=== PATIENT | male | born 1990 | race Two or more races ===

== ENCOUNTER 2018-01-15 11:24 | Emergency (ER) | payer OTHER, BC ==
[2018-01-15 11:42] VITALS: BP 175/90; PULSE 88; RESP 18; TEMP 97.9
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
--- NOTE | 2018-01-15 12:40 | XR ---
EXAMINATION TYPE: XR shoulder complete LT DATE OF EXAM: 01/15/2018 COMPARISON: NONE HISTORY: Pain TECHNIQUE: Three views are submitted. FINDINGS: The osseous structures are intact. There is no acute fracture or dislocation. The AC joint is maint ained. Calcification left axilla is nonspecific. IMPRESSION: 1. No acute process.
--- NOTE | 2018-01-15 12:41 | XR ---
EXAM TYPE: LUMBAR SPINE X RAY SERIES COMPARISON: NONE HISTORY: Pain TECHNIQUE: 3 views are submitted. FINDINGS: Alignment is anatomic. The pedicles are intact. The transverse processes are intact. There is no s pondylolysis or spondylolisthesis. IMPRESSION: 1. No acute process.
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
== END 2018-01-15 13:54 | disposition home or self-care (01) ==
LOC: EC 11:24
DX: R51 Headache (principal); H57.12 Ocular pain, left eye; M25.512 Pain in left shoulder; M54.5 Low back pain; Z87.891 Personal history of nicotine dependence; V43.52XA Car driver injured in collision with other type car in traffic accident, initial encounter; W22.11XA Striking against or struck by driver side automobile airbag, initial encounter; Y92.410 Unspecified street and highway as the place of occurrence of the external cause
CPT/HCPCS: 70450; 70486; 72100; 72125; 99284

== ENCOUNTER 2019-05-21 16:42 | Emergency (ER) | payer OTHER, BC ==
[2019-05-21 16:45] VITALS: BP 130/64; PULSE 66; RESP 20; TEMP 97.7
--- NOTE | 2019-05-21 17:48 | XR ---
EXAMINATION TYPE: XR hand complete LT DATE OF EXAM: 05/21/2019 COMPARISON: NONE HISTORY: Hand pain TECHNIQUE: 3 views FINDINGS: Metacarpals appear intact. I see no fracture nor dislocation. Joint spaces are normal. Ther e are no erosions. IMPRESSION: Negative left hand exam.
--- NOTE | 2019-05-21 17:49 | XR ---
EXAMINATION TYPE: XR wrist complete LT DATE OF EXAM: 05/21/2019 COMPARISON: NONE HISTORY: Pain TECHNIQUE: 4 views FINDINGS: Carpal bones appear intact. I see no fracture nor dislocation. Joint spaces are normal. IMPRESSION: Negative left wrist exam.
--- NOTE | 2019-05-21 17:49 | XR ---
EXAMINATION TYPE: XR lumbar spine 2 or 3V DATE OF EXAM: 05/21/2019 COMPARISON: 01/15/2018 HISTORY: Pain TECHNIQUE: 3 views FINDINGS: Lumbar vertebra have normal spacing and alignment. Posterior elements are intact. Sacroilia c joints appear normal. IMPRESSION: Negative lumbar spine exam. No change.
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
== END 2019-05-21 18:49 | disposition home or self-care (01) ==
LOC: EC 16:42
DX: S39.92XA Unspecified injury of lower back, initial encounter (principal); S69.92XA Unspecified injury of left wrist, hand and finger(s), initial encounter; M79.89 Other specified soft tissue disorders; V49.40XA Driver injured in collision with unspecified motor vehicles in traffic accident, initial encounter; Y93.89 Activity, other specified; Y92.410 Unspecified street and highway as the place of occurrence of the external cause; Z87.891 Personal history of nicotine dependence
CPT/HCPCS: 72100; 99284